=== PATIENT | female | born 1985 | race Caucasian/White ===

== ENCOUNTER 2016-11-16 12:04 | Outpatient (CLI) | payer OTHER | END 2016-11-16 23:00 | LOC: LAB SRH 12:04 | DX: Z34.83 Encounter for supervision of other normal pregnancy, third trimester (principal) | CPT/HCPCS: 90001; 90004; 90074; 90155; 95059 ==

== ENCOUNTER 2016-11-17 05:04 | Inpatient (IN) | payer OTHER ==
[~2016-11-17] VITALS: Ht 162.6 cm; Wt 101.2 kg
[2016-11-17] VITALS (12 sets, daily range): BP systolic 110–135; BP diastolic 58–79
--- NOTE | 2016-11-17 09:23 | NUR ---
REC'D FROM OR; SPONT RESP. SUPINE AND ALERT- LOOKING AT BABY PICS.
--- NOTE | 2016-11-17 09:42 | NUR ---
GOWN CHANGED DUE TO BLOOD STAIN; UTERUS MASSAGES YIELDED SM CLOT; DR. GARCIA PRESENT AND OBSERVED CLOT. SENSATION STILL AT T-5
--- NOTE | 2016-11-17 10:13 | NUR ---
sensation to T-10. ABLE TO TURN ON TO SIDE. SCANT CLINTON DRAINAGE.
--- NOTE | 2016-11-17 13:12 | NUR ---
Pt. Returned from PACU in stable condition. IV site w/o redness or edema. Vital signs WNL. Suero catheter draining w/o difficulty. Pt assisted to her side to breastfeed infant. Will continue to monitor pt. status.
--- NOTE | 2016-11-17 13:18 | NUR ---
Pt. visiting with realtives. Tolerated clear liquid lunch w/oi difficulty. C/O some incisional discomfort. Will continue to monitor discomfort level.
--- NOTE | 2016-11-18 00:43 | NUR ---
ASSUMED CARE, REPORT FROM SERVANDO QIU. PT. STATES SHE IS DOING WELL, PAIN IS STARTING TO "PINCH" AND SHE IS READY FOR MORE PAIN MEDS. REFILL WATER AND JUICE DRINK. ASSISTED TO THE BATHROOM, WHERE PATIENT WAS ABLE TO VOID 300, SO CONVERTED TO SALINE LOCK. MINIMAL ASSISTANCE NEEDED TO GET BACK TO BED. PAD CHANGED. APPROPRIATE WITH BABY, AT BEDSIDE. WILL CONTINUE TO MONITOR.
[2016-11-18 04:12] VITALS: BP 104/59
[2016-11-18 08:30] VITALS: BP 133/64
--- NOTE | 2016-11-18 09:34 | OPERATIVE REPORT ---
DATE OF SURGERY: 11/17/2016 SURGEON: DAMI GARCIA MD [employer] MECHANIC: KELLY ABDALLA MD PREOPERATIVE DIAGNOSIS: 1. Term , previous section x2 for repeat. POSTOPERATIVE DIAGNOSIS: 1. Term , previous section x2 for repeat, delivered. PROCEDURE PERFORMED: 1. Repeat low segment transverse uterine incision and section with scar revision. ANESTHESIA: DEJAH Ryan, for spinal anesthesia. COMPLICATIONS: None. FLUIDS: See anesthesia. EBL: Less than 300 GRAFTS/IMPLANTS: None SPECIMEN: Placenta and scar revision to Pathology SURGICAL FINDINGS: Lining attached to abdominal wall on the left. Dissection not performed. That was findings of usual. SURGICAL TECHNIQUE: The patient was prepped and draped in the usual fashion. Time-out performed. Patient had been given 2 g of Ancef preoperatively, and time-out was satisfactorily done. After the spinal epidural was found to very effective, the incision was made superior and inferior 2 cm to the previous scar. The scalpel with Bovie was used and taken down through the other layers and dissecting laterally and superiorly. The parietal peritoneum was entered. There were significant adhesions on the anterior abdominal wall to the left side of the uterus. With some stretching, the Caesar self-retractor was placed. Bovie was used to make the lower uterine segment. It was 2-3 mm thick. The bag was ruptured. The fluid was found to be clear. The was less than 8 pounds. With the head placed into the incision site, Mityvac was placed and the was delivered with minimal pull. was active delivery. Cord blood was selected after doubly clamped. The infant was handed to the OB nurse and Respiratory Therapy. Baby had good Apgars. After collection of the cord blood, the uterus was massaged, and the uterus was left in normal anatomic position. The placenta was removed. Membranes were wiped. First, suture of 0 Poly was used to close in a locking fashion and returned in an imbricating fashion for good hemostasis. Bovie was used with meticulous hemostasis on the remainder of surfaces identified. [id number] was placed on the rectus to reapproximate the diastasis recti. A second suture was used to reapproximate the fascia, 2 cm wide, 2 cm deep with good approximation. 2-0 Poly was used to reapproximate the subcu tissue. Skin was reapproximated with domingo. Sponge, needle, staple and instrument count was correct x2. The patient tolerated the procedure well, went to the recovery room in good condition. Dami Garcia MD
--- NOTE | 2016-11-18 10:40 | NUR ---
Pt. sleeping with infant at side. Will return with breakfast tray and continue to monitor pt. status and offer assistance as needed.
[2016-11-18 16:31] VITALS: BP 131/66
[2016-11-18 19:56] VITALS: BP 118/78
[2016-11-19] VITALS: BP 133/78
[2016-11-19 08:30] VITALS: BP 122/64
[2016-11-19] MEDS ORDERED: PERCOCET1 TA1 PO (12:49)
--- NOTE | 2016-11-19 12:50 | Provider's Discharge Care Plan ---
Problem, Goal, Plan Problem List 1. Post-op pain Goals: Improve disease control Instructions: Follow up as needed
--- NOTE | 2016-11-19 12:50 | Provider's Discharge Care Plan ---
Problem, Goal, Plan Problem List 1. Post-op pain Goals: Improve disease control Instructions: Follow up as needed
--- NOTE | 2016-11-19 14:36 | NUR ---
Pt up today more walking, tolerated well. Taking percocet which has been effective for pain relief. Encouraged to take stool softeners. Incision clear, flow light. Teaching done on Breastfeding, has difficulty latching ( as with her other babies) Nipples appear Okay, fussy baby. Impatient on breast and refusing nipple shelid today. Mom then pumps breast milk and feeds to baby 15-18 cc every 2-3 hours. Plans on continuing to offer breast then pumps and feed baby. Has support from family. D/C instructions given and verblizes understanding. F/U appt. for incision check and staple removal on [facility] with [facility].D/C to home at 1400 via W/C with baby and SO.Script given for percocet.
== END 2016-11-19 14:00 | disposition home or self-care (01) | DRG 540 ==
LOC: OB SRH 05:04 → U SRH 07:30 → OB SRH 11-19 14:00
PROVIDERS: ADMIT Obstetrics & Gynecology
PROC: 10D00Z1 Extraction of Products of Conception, Low, Open Approach (ICD-10-PCS; principal; 2016-11-17 07:30)
DX: O34.211 Maternal care for low transverse scar from previous cesarean delivery (principal); Z37.0 Single live birth; Z3A.39 39 weeks gestation of pregnancy
CPT/HCPCS: 40010; 50002; 60001; 82058; 82997; 83411; 83426; 83526; 84038; 85372; 90074; 91162; 91163